=== PATIENT | male | born 2005 | race Caucasian/White ===

== ENCOUNTER 2025-03-29 15:26 | Emergency (ER) | payer OTHER ==
[2025-03-29] MEDS ORDERED: Lidocaine/Transparent Dressing 1 EACH KIT ONE (18:11)
[2025-03-29 18:39] LABS: Bacteria/HPF None Seen HPF (None Seen); CAUTI Indications for Culture Pelvic or flank pain; Glucose, Urine (Dipstick) Normal (Negative); Leukocyte Negative Leu/uL (Negative); Protein, Urine (Dipstick) Negative (Neg-Trace); RBC/HPF None Seen HPF (0-3); Specific Gravity, Urine 1.006 (1.002-1.036); WBC/HPF None Seen HPF (0-3)
[2025-03-29 18:42] LABS: Urine Culture Reflex No No
[2025-03-29] MEDS ORDERED: Lidocaine 1% PF 5 ML VIAL ONE (18:47)
[2025-03-29] MEDS ORDERED: Bacitracin 1 PK ONE (19:13)
== END 2025-03-29 19:33 | disposition home or self-care (01) ==
LOC: ERS 15:26
DX: S31.21XA Laceration without foreign body of penis, initial encounter (principal); W26.8XXA Contact with other sharp object(s), not elsewhere classified, initial encounter
CPT/HCPCS: 12001; 81001; 99283